=== PATIENT | male | born 1965 | race Caucasian/White ===

== ENCOUNTER 2019-07-29 20:46 | Inpatient (IN) | payer MEDICARE, MEDICAID ==
[~2019-07-29] VITALS: Ht 177.8 cm; Wt 124.7 kg
[~2019-07-29 20:46] MED LIST: DIVA125T2; OLAN2.5T3; SERT25TA; WARF1TAB46
[2019-07-29] MEDS ORDERED: PIPERACILLIN/TAZ 3.375G PREMIX 50 ML IV ONE (21:45)
[2019-07-29] MEDS ORDERED: VANCOMYCIN 1 G PREMIX 200 ML IV ONE (21:45)
[2019-07-29] MEDS ORDERED: ONDANSETRON HCL 4MG/2ML INJ IV STA (21:45)
[2019-07-29] MEDS ORDERED: MORPHINE SULFATE 4 MG/ML CPJ (NOT FOR IM USE) IV STA (21:45)
[2019-07-29] MEDS ORDERED: ONDANSETRON HCL 4MG/2ML INJ IV NR (22:15)
[2019-07-29 23:57] LABS: HEMATOCRIT. 38.9 % (42.0-52.0); HEMOGLOBIN. 13.2 g/dL (14.0-18.0); MEAN CORPUSCULAR HEMOGLOBIN 31.9 pg (28.0-32.0); MEAN CORPUSCULAR VOLUME 93.7 fL (80.0-94.0); MEAN PLATELET VOLUME 8.8 fl (7.4-10.4); PLATELET 205 x1000/uL (130-400); RED BLOOD CELL COUNT 4.15 mill/uL (4.7-6.1); RED CELL DISTRIBUTION WIDTH 13.7 % (11.6-14.6)
[2019-07-30 00:03] LABS: INR 2.3; PARTIAL THROMBOPLASTIN TIME 39.2 sec (23.4-31.0); PROTHROMBIN TIME 23.1 sec (9.6-11.0)
[2019-07-30 00:07] LABS: CHLORIDE 95 mEq/L (98-107)
[2019-07-30 00:11] LABS: ETHANOL BLOOD < 10 mg/dL
[2019-07-30 00:15] LABS: CREATINE KINASE 810 IU/L (39-308)
[2019-07-30 00:18] LABS: CREATINE KINASE MB FRACTION 5.9 ng/mL (0.5-3.6)
[2019-07-30 01:51] LABS: PLATELET ESTIMATE NORMAL
[2019-07-30 03:33] VITALS: BP 117/75
[2019-07-30 08:00] VITALS: BP 105/66
[2019-07-30] MEDS ORDERED: VANCOMYCIN 1500MG in DEXTROSE 5% WATER 250ML IV SCH (08:00)
[2019-07-30] MEDS: SERTRALINE HCL 25MG TABLET PO SCH (08:24)
[2019-07-30] MEDS: OLANZAPINE 2.5MG TABLET PO SCH (08:24)
[2019-07-30] MEDS: DIVALPROEX SODIUM 125MG EC TABLET PO SCH ×2 (09:27→22:12)
[2019-07-30 12:00] VITALS: BP 108/72
[2019-07-30 12:56] LABS: CLARITY URINE CLEAR (CLEAR); COLOR URINE YELLOW (YELLOW); KETONES URINE NEGATIVE (NEGATIVE); LEUKOCYTE ESTERASE URINE NEGATIVE (NEGATIVE); NITRITE URINE NEGATIVE (NEGATIVE); OCCULT BLOOD URINE TRACE (NEGATIVE); PH URINE 6.5 (4.5-8.0); PROTEIN URINE NEGATIVE (NEGATIVE); SPECIFIC GRAVITY URINE 1.012 (1.005-1.030)
[2019-07-30 13:07] LABS: *AMPHETAMINES SCREEN URINE NEGATIVE (NEGATIVE); *BENZODIAZEPINES SCREEN URINE NEGATIVE (NEGATIVE); *COCAINE SCREEN URINE NEGATIVE (NEGATIVE); METHADONE URINE SCREEN NEGATIVE (NEGATIVE)
[2019-07-30 13:08] LABS: CANNABINOID URINE SCREEN NEGATIVE (NEGATIVE); OPIATES URINE SCREEN PRESUMTIVE POSITIVE (NEGATIVE); PHENCYCLIDINE URINE SCREEN NEGATIVE (NEGATIVE)
[2019-07-30 13:10] LABS: *BARBITURATES SCREEN URINE NEGATIVE (NEGATIVE)
[2019-07-30 16:00] VITALS: BP 116/72
[2019-07-30] MEDS ORDERED: WARFARIN SODIUM 4MG TABLET PO SCH (18:00)
[2019-07-30 20:00] VITALS: BP 125/73
[2019-07-30] MEDS ORDERED: ACETAMINOPHEN 325MG TABLET PO PRN (20:30)
[2019-07-30] MEDS ORDERED: MAGNESIUM/ALUMINUM HYDROXIDE/SIMETHICONE 30ML UDC PO PRN (20:30)
[2019-07-30] MEDS ORDERED: GUAIFENESIN 200MG/10ML SUGAR FREE UDC PO PRN (20:30)
[2019-07-30] MEDS ORDERED: DIPHENHYDRAMINE 50MG/ML VIAL IV PRN (20:30)
[2019-07-30] MEDS ORDERED: IPRATROPIUM/ALBUTEROL 0.5-3(2.5)MG/3ML NEB HHN PRN (20:30)
[2019-07-30] MEDS ORDERED: CLONIDINE 0.1MG TABLET PO PRN (20:30)
[2019-07-30] MEDS ORDERED: ONDANSETRON HCL 4MG/2ML INJ IV PRN (20:30)
[2019-07-30] MEDS ORDERED: CEFAZOLIN SODIUM 1000MG/VIAL IV SCH (22:00)
[2019-07-30] MEDS: CEFAZOLIN 1000MG PREMIX 50 ML IV SCH (22:12)
[2019-07-30] MEDS: SODIUM CHLORIDE 0.9% INJ 3ML FLUSH IVF SCH (22:12)
[2019-07-31] VITALS: BP 128/78
[2019-07-31 04:00] VITALS: BP 126/71
[2019-07-31] MEDS: CEFAZOLIN 1000MG PREMIX 50 ML IV SCH ×3 (05:17→21:46)
[2019-07-31] MEDS: SODIUM CHLORIDE 0.9% INJ 3ML FLUSH IVF SCH ×3 (05:17→21:47)
[2019-07-31 06:16] LABS: INR 2.5; PROTHROMBIN TIME 24.4 sec (9.6-11.0)
[2019-07-31 06:58] LABS: CHLORIDE 96 mEq/L (98-107)
[2019-07-31 08:00] VITALS: BP 146/69
[2019-07-31] MEDS: SERTRALINE HCL 25MG TABLET PO SCH (09:16)
[2019-07-31] MEDS: DIVALPROEX SODIUM 125MG EC TABLET PO SCH ×2 (09:17→21:46)
[2019-07-31] MEDS: OLANZAPINE 2.5MG TABLET PO SCH (09:17)
[2019-07-31 12:00] VITALS: BP 140/82
[2019-07-31] MEDS ORDERED: FERR325T6 MT (14:07)
[2019-07-31] MEDS ORDERED: SERT-112 MT (14:07)
[2019-07-31] MEDS ORDERED: BUSP10TA3 MT (14:07)
[2019-07-31] MEDS ORDERED: OMEP20CA5 MT (14:07)
[2019-07-31] MEDS ORDERED: OLAN5TAB26 MT (14:07)
[2019-07-31] MEDS ORDERED: TRAZ150T78 MT (14:07)
[2019-07-31] MEDS ORDERED: WARF4TAB71 MT (14:07)
[2019-07-31] MEDS ORDERED: VALP250C3 PO (14:08)
[2019-07-31] MEDS ORDERED: VALP250C3 MT (14:08)
[2019-07-31] MEDS ORDERED: LOSA50TA41 MT (14:08)
[2019-07-31] MEDS ORDERED: WARFARIN SODIUM 4MG TABLET PO NR (18:00)
[2019-08-01] VITALS: BP 141/77
[2019-08-01 04:00] VITALS: BP 130/79
[2019-08-01] MEDS: SODIUM CHLORIDE 0.9% INJ 3ML FLUSH IVF SCH ×2 (06:30→14:00)
[2019-08-01] MEDS: CEFAZOLIN 1000MG PREMIX 50 ML IV SCH ×3 (06:30→22:00)
[2019-08-01] MEDS: OLANZAPINE 2.5MG TABLET PO SCH (09:06)
[2019-08-01] MEDS: DIVALPROEX SODIUM 125MG EC TABLET PO SCH ×2 (09:06→21:39)
[2019-08-01] MEDS: SERTRALINE HCL 25MG TABLET PO SCH (09:06)
[2019-08-01 12:14] LABS: HEMATOCRIT. 35.8 % (42.0-52.0); HEMOGLOBIN. 12.3 g/dL (14.0-18.0); MEAN CORPUSCULAR HEMOGLOBIN 32.2 pg (28.0-32.0); MEAN CORPUSCULAR VOLUME 94.1 fL (80.0-94.0); MEAN PLATELET VOLUME 9.4 fl (7.4-10.4); PLATELET 216 x1000/uL (130-400); RED CELL DISTRIBUTION WIDTH 13.6 % (11.6-14.6)
[2019-08-01 12:21] LABS: INR 1.7; PROTHROMBIN TIME 16.8 sec (9.6-11.0)
[2019-08-01 12:27] VITALS: BP 123/77
[2019-08-01 14:04] LABS: PLATELET ESTIMATE NORMAL
[2019-08-01 16:00] VITALS: BP 141/84
[2019-08-01] MEDS ORDERED: WARFARIN SODIUM 5MG TABLET PO NR (18:00)
[2019-08-01 20:00] VITALS: BP 133/70
[2019-08-02] VITALS: BP 125/67
[2019-08-02 04:00] VITALS: BP 127/72
[2019-08-02] MEDS: CEFAZOLIN 1000MG PREMIX 50 ML IV SCH (06:00)
[2019-08-02 07:52] LABS: INR 1.4
[2019-08-02 08:00] VITALS: BP 143/85
[2019-08-02] MEDS: DIVALPROEX SODIUM 125MG EC TABLET PO SCH ×2 (09:06→21:23)
[2019-08-02] MEDS: OLANZAPINE 2.5MG TABLET PO SCH (09:06)
[2019-08-02] MEDS: SERTRALINE HCL 25MG TABLET PO SCH (09:06)
[2019-08-02] MEDS ORDERED: ONDANSETRON HCL 4MG/2ML INJ IM SCH (09:15)
[2019-08-02 12:00] VITALS: BP 144/83
[2019-08-02] MEDS ORDERED: WARFARIN SODIUM 3MG TABLET PO SCH (18:00)
[2019-08-02 20:00] VITALS: BP 166/91
[2019-08-02] MEDS: HYDROCODONE/ACETAMINOPHEN 5/325MG TABLET PO PRN ×2 (20:35→21:41)
[2019-08-02] MEDS: SODIUM CHLORIDE 0.9% INJ 3ML FLUSH IVF SCH (21:41)
[2019-08-03] VITALS: BP 124/77
[2019-08-03 04:00] VITALS: BP 128/80
[2019-08-03] MEDS: HYDROCODONE/ACETAMINOPHEN 5/325MG TABLET PO PRN (05:20)
[2019-08-03] MEDS: SODIUM CHLORIDE 0.9% INJ 3ML FLUSH IVF SCH ×3 (05:23→21:33)
[2019-08-03 08:18] LABS: INR 1.3; PROTHROMBIN TIME 13.2 sec (9.6-11.0)
[2019-08-03] MEDS: OLANZAPINE 2.5MG TABLET PO SCH (08:37)
[2019-08-03] MEDS: SERTRALINE HCL 25MG TABLET PO SCH (08:37)
[2019-08-03] MEDS: DIVALPROEX SODIUM 125MG EC TABLET PO SCH ×2 (08:37→20:52)
[2019-08-03] MEDS: LORAZEPAM 1MG TABLET PO PRN (11:05)
[2019-08-03] MEDS: HYDROCODONE/APAP 7.5/325MG 1 TAB TABLET PO PRN (11:06)
[2019-08-03] MEDS: ONDANSETRON 4MG ODT PO PRN (13:52)
[2019-08-03] MEDS ORDERED: WARFARIN SODIUM 7.5MG TABLET PO SCH (18:00)
[2019-08-03 20:00] VITALS: BP 128/83
[2019-08-04] MEDS: SODIUM CHLORIDE 0.9% INJ 3ML FLUSH IVF SCH ×3 (05:17→20:41)
[2019-08-04 06:40] LABS: BASOPHILS % 0.3 % (0.0-2.0); EOSINOPHILS % 0.6 % (0.0-5.0); HEMOGLOBIN. 12.1 g/dL (14.0-18.0); LYMPHOCYTES % 16.8 % (20.0-50.0); MEAN CORPUSCULAR HEMOGLOBIN 32.5 pg (28.0-32.0); MEAN CORPUSCULAR VOLUME 93.9 fL (80.0-94.0); MEAN PLATELET VOLUME 8.9 fl (7.4-10.4); MONOCYTES % 12.3 % (2.0-8.0); PLATELET 247 x1000/uL (130-400); RED BLOOD CELL COUNT 3.73 mill/uL (4.7-6.1); RED CELL DISTRIBUTION WIDTH 13.8 % (11.6-14.6)
[2019-08-04 06:47] LABS: INR 1.7; PROTHROMBIN TIME 17.2 sec (9.6-11.0)
[2019-08-04 07:02] LABS: CHLORIDE 100 mEq/L (98-107)
[2019-08-04 08:00] VITALS: BP 139/84
[2019-08-04] MEDS: DIVALPROEX SODIUM 125MG EC TABLET PO SCH ×2 (08:00→20:40)
[2019-08-04] MEDS: SERTRALINE HCL 25MG TABLET PO SCH (08:00)
[2019-08-04] MEDS: OLANZAPINE 2.5MG TABLET PO SCH (08:00)
[2019-08-04] MEDS: ONDANSETRON 4MG ODT PO PRN ×2 (08:00→14:57)
[2019-08-04 12:00] VITALS: BP 120/79
[2019-08-04] MEDS: HYDROCODONE/APAP 7.5/325MG 1 TAB TABLET PO PRN (14:58)
[2019-08-04] MEDS ORDERED: WARFARIN SODIUM 3MG TABLET PO NR (18:00)
[2019-08-04] MEDS: LORAZEPAM 1MG TABLET PO PRN (18:11)
[2019-08-04 20:00] VITALS: BP 139/75
[2019-08-05] MEDS: LORAZEPAM 1MG TABLET PO PRN ×2 (03:37→16:17)
[2019-08-05 04:00] VITALS: BP 152/74
[2019-08-05] MEDS: SODIUM CHLORIDE 0.9% INJ 3ML FLUSH IVF SCH ×3 (06:00→21:49)
[2019-08-05 06:44] LABS: INR 2.1; PROTHROMBIN TIME 20.6 sec (9.6-11.0)
[2019-08-05] MEDS: OLANZAPINE 2.5MG TABLET PO SCH (08:51)
[2019-08-05] MEDS: SERTRALINE HCL 25MG TABLET PO SCH (08:52)
[2019-08-05] MEDS: DIVALPROEX SODIUM 125MG EC TABLET PO SCH ×2 (08:52→21:48)
[2019-08-05] MEDS: ONDANSETRON 4MG ODT PO PRN (10:22)
[2019-08-05 12:00] VITALS: BP 145/86
[2019-08-05] MEDS: LIDOCAINE 5% PATCH TOP SCH (15:01)
[2019-08-05 16:00] VITALS: BP 143/89
[2019-08-05] MEDS ORDERED: WARFARIN SODIUM 4MG TABLET PO SCH (18:00)
[2019-08-05 20:00] VITALS: BP 146/88
[2019-08-06] VITALS: BP 136/83
[2019-08-06] MEDS: SODIUM CHLORIDE 0.9% INJ 3ML FLUSH IVF SCH ×2 (05:19→14:00)
[2019-08-06] MEDS ORDERED: NA PHOS,M-B/NA PHOS,DI-BA ENEMA 118ML PR PRN (06:15)
[2019-08-06 07:02] LABS: INR 1.9; PROTHROMBIN TIME 19.2 sec (9.6-11.0)
[2019-08-06 08:00] VITALS: BP 146/86
[2019-08-06] MEDS: OLANZAPINE 2.5MG TABLET PO SCH (08:53)
[2019-08-06] MEDS: LIDOCAINE 5% PATCH TOP SCH (08:53)
[2019-08-06] MEDS: DIVALPROEX SODIUM 125MG EC TABLET PO SCH (08:53)
[2019-08-06] MEDS: SERTRALINE HCL 25MG TABLET PO SCH (08:53)
[2019-08-06] MEDS ORDERED: DOCUSATE SODIUM 100MG CAPSULE PO SCH (09:00)
[2019-08-06 12:00] VITALS: BP 138/87
[2019-08-06 14:07] VITALS: BP 134/87
[2019-08-06 16:00] VITALS: BP 138/85
[2019-08-06] MEDS ORDERED: WARFARIN SODIUM 5MG TABLET PO SCH (18:00)
== END 2019-08-06 17:13 | DRG 563 ==
LOC: ER 20:46 → 6EST 07-30 01:08 → EDBEDREQDT 07-30 01:12 → EDBEDREQ 07-30 01:12 → EDBEDREQTM 07-30 01:12 → EDBEDREQSVC 07-30 01:12 → ENRESERV 07-30 01:45
PROVIDERS: ADMIT Family Medicine Adult Medicine; ATTEND Family Medicine Adult Medicine
DX: S82.145A Nondisplaced bicondylar fracture of left tibia, initial encounter for closed fracture (principal); L03.116 Cellulitis of left lower limb; I82.403 Acute embolism and thrombosis of unspecified deep veins of lower extremity, bilateral; E22.2 Syndrome of inappropriate secretion of antidiuretic hormone; M62.82 Rhabdomyolysis; I82.512 Chronic embolism and thrombosis of left femoral vein; I51.7 Cardiomegaly; M85.80 Other specified disorders of bone density and structure, unspecified site; R79.1 Abnormal coagulation profile; W03.XXXA Other fall on same level due to collision with another person, initial encounter; E66.01 Morbid (severe) obesity due to excess calories; Z68.39 Body mass index [BMI] 39.0-39.9, adult; Z72.0 Tobacco use; Z79.01 Long term (current) use of anticoagulants; Y93.89 Activity, other specified; Y92.89 Other specified places as the place of occurrence of the external cause; Y99.8 Other external cause status
CPT/HCPCS: 36415; 71045; 73502; 73590; 73600; 73620; 73700; 80048; 80165; 80202; 80305; 80320; 81003; 82550; 82553; 83605; 83880; 84443; 84484; 93005; 93970; 97140; 97162; 97165; 97530; 97535; 99285; C1893; J0690; J1200; J2270; J2405; J2543; J3370; J7060; Q0162; G0480

== ENCOUNTER 2019-11-01 18:03 | Inpatient (IN) | payer MEDICARE, MEDICAID ==
[~2019-11-01] VITALS: Ht 188 cm; Wt 90.7 kg
[~2019-11-01 18:03] MED LIST changes: +BUSP10TA3 MT; -DIVA125T2; +FERR325T6 MT; +LOSA50TA41 MT; -OLAN2.5T3; +OLAN5TAB26 MT; +OMEP20CA14 MT; +SERT-112 MT; -SERT25TA; +TRAZ150T78 MT; +VALP250C3 MT; +VALP250C3 PO; -WARF1TAB46; +WARF4TAB71 MT
[2019-11-01] MEDS ORDERED: SODIUM CHLORIDE 0.9% 1,000 ML IV ONE (21:51)
[2019-11-01] MEDS ORDERED: MORPHINE SULFATE 4 MG/ML CPJ (NOT FOR IM USE) IV STA (21:51)
[2019-11-01] MEDS ORDERED: ONDANSETRON HCL 4MG/2ML INJ IV STA (21:51)
[2019-11-01] MEDS ORDERED: FAMOTIDINE 20MG/2ML VIAL IV ONE (22:00)
[2019-11-01] MEDS ORDERED: MAGNESIUM/ALUMINUM HYDROXIDE/SIMETHICONE 30ML UDC PO ONE (22:00)
[2019-11-01 23:51] LABS: BASOPHILS % 0.5 % (0.0-2.0); EOSINOPHILS % 1.3 % (0.0-5.0); HEMATOCRIT. 37.6 % (42.0-52.0); HEMOGLOBIN. 12.7 g/dL (14.0-18.0); LYMPHOCYTES % 16.9 % (20.0-50.0); MEAN CORPUSCULAR HEMOGLOBIN 30.2 pg (28.0-32.0); MEAN CORPUSCULAR VOLUME 89.2 fL (80.0-94.0); MEAN PLATELET VOLUME 8.5 fl (7.4-10.4); MONOCYTES % 5.9 % (2.0-8.0); NEUTROPHILS % 75.4 % (40.0-76.0); PLATELET 294 x1000/uL (130-400); RED BLOOD CELL COUNT 4.22 mill/uL (4.7-6.1); RED CELL DISTRIBUTION WIDTH 14.1 % (11.6-14.6)
[2019-11-01 23:56] LABS: CHLORIDE 104 mEq/L (98-107)
[2019-11-01 23:57] LABS: INR 1.1
[2019-11-02 00:03] LABS: ETHANOL BLOOD < 10 mg/dL
[2019-11-02] MEDS ORDERED: ASPIRIN 81MG TABLET PO ONE (01:45)
[2019-11-02] MEDS ORDERED: IOHEXOL-350 100 ML BOTTLE ONE (04:42)
[2019-11-02 05:38] VITALS: BP 146/89
[2019-11-02 12:20] VITALS: BP 120/71
[2019-11-02 16:00] VITALS: BP 117/62
[2019-11-02] MEDS ORDERED: LORAZEPAM 0.5MG TABLET PO PRN (18:15)
[2019-11-02] MEDS ORDERED: ONDANSETRON HCL 4MG/2ML INJ IV PRN (18:15)
[2019-11-02] MEDS ORDERED: ACETAMINOPHEN 325MG TABLET PO PRN (18:15)
[2019-11-02] MEDS ORDERED: HYDROCODONE/ACETAMINOPHEN 5/325MG TABLET PO PRN (18:15)
[2019-11-02] MEDS ORDERED: CLONIDINE 0.1MG TABLET PO PRN (18:15)
[2019-11-02] MEDS ORDERED: IPRATROPIUM/ALBUTEROL 0.5-3(2.5)MG/3ML NEB HHN PRN (18:15)
[2019-11-02] MEDS ORDERED: DOCUSATE SODIUM 100MG CAPSULE PO PRN (18:15)
[2019-11-02 20:00] VITALS: BP 112/67
[2019-11-02] MEDS: VALPROIC ACID 250MG CAPSULE PO SCH (22:00)
[2019-11-02] MEDS: SERTRALINE HCL 100MG TABLET PO SCH (22:00)
[2019-11-02] MEDS: BUSPIRONE HCL 5MG TABLET PO SCH (22:00)
[2019-11-02] MEDS: FUROSEMIDE 40MG/4ML VIAL IV SCH (22:01)
[2019-11-02] MEDS: OLANZAPINE 5MG TABLET PO SCH (22:01)
[2019-11-02 23:55] VITALS: BP 105/62
[2019-11-03 04:00] VITALS: BP 122/67
[2019-11-03] MEDS: BUSPIRONE HCL 5MG TABLET PO SCH ×3 (06:00→21:21)
[2019-11-03 08:00] VITALS: BP 126/88
[2019-11-03] MEDS: LOSARTAN POTASSIUM 50 MG TABLET PO SCH (09:10)
[2019-11-03] MEDS: FUROSEMIDE 40MG/4ML VIAL IV SCH (09:10)
[2019-11-03] MEDS: SERTRALINE HCL 100MG TABLET PO SCH (09:11)
[2019-11-03] MEDS: VALPROIC ACID 250MG CAPSULE PO SCH ×2 (09:11→16:54)
[2019-11-03 12:00] VITALS: BP 121/81
[2019-11-03 16:00] VITALS: BP 130/86
[2019-11-03] MEDS ORDERED: WARFARIN SODIUM 7.5MG TABLET PO SCH (18:00)
[2019-11-03 20:00] VITALS: BP 120/75
[2019-11-03] MEDS: OLANZAPINE 5MG TABLET PO SCH (21:21)
[2019-11-04] VITALS: BP 125/76
[2019-11-04 04:00] VITALS: BP 108/70
[2019-11-04] MEDS: BUSPIRONE HCL 5MG TABLET PO SCH ×3 (06:01→21:20)
[2019-11-04 07:17] LABS: PROTHROMBIN TIME 10.6 sec (9.6-11.0)
[2019-11-04 08:00] VITALS: BP 132/92
[2019-11-04] MEDS: VALPROIC ACID 250MG CAPSULE PO SCH ×2 (08:46→16:35)
[2019-11-04] MEDS: FUROSEMIDE 40MG/4ML VIAL IV SCH (08:46)
[2019-11-04] MEDS: SERTRALINE HCL 100MG TABLET PO SCH (08:46)
[2019-11-04] MEDS: LOSARTAN POTASSIUM 50 MG TABLET PO SCH (08:46)
[2019-11-04 12:00] VITALS: BP 123/89
[2019-11-04 16:00] VITALS: BP 117/63
[2019-11-04] MEDS ORDERED: WARFARIN SODIUM 7.5MG TABLET PO SCH (18:00)
[2019-11-04 20:17] VITALS: BP 116/62
[2019-11-04] MEDS: OLANZAPINE 5MG TABLET PO SCH (21:25)
[2019-11-05 00:21] VITALS: BP 119/63
[2019-11-05 04:00] VITALS: BP 112/70
[2019-11-05] MEDS: BUSPIRONE HCL 5MG TABLET PO SCH ×2 (06:02→14:03)
[2019-11-05 06:10] LABS: INR 1.2; PROTHROMBIN TIME 12.2 sec (9.6-11.0)
[2019-11-05 08:02] VITALS: BP 126/77
[2019-11-05] MEDS: FUROSEMIDE 40MG/4ML VIAL IV SCH (09:00)
[2019-11-05] MEDS: SERTRALINE HCL 100MG TABLET PO SCH (09:00)
[2019-11-05] MEDS: LOSARTAN POTASSIUM 50 MG TABLET PO SCH (09:00)
[2019-11-05] MEDS ORDERED: OMEPRAZOLE 20MG CAPSULE EXTENDED RELEASE PO SCH (09:00)
[2019-11-05] MEDS: VALPROIC ACID 250MG CAPSULE PO SCH (09:00)
[2019-11-05] MEDS ORDERED: ATOR20TA65 MT (09:33)
[2019-11-05 11:56] VITALS: BP 136/89
[2019-11-05] MEDS ORDERED: WARFARIN SODIUM 7.5MG TABLET PO NR (18:00)
== END 2019-11-05 14:38 | DRG 313 ==
LOC: ER 18:03 → 6WST 11-02 01:22 → EDBEDREQDT 11-02 01:28 → EDBEDREQTM 11-02 01:28 → EDBEDREQ 11-02 01:28 → ENRESERV 11-02 03:06
PROVIDERS: ADMIT Internal Medicine; ATTEND Internal Medicine
DX: R07.89 Other chest pain (principal); I82.509 Chronic embolism and thrombosis of unspecified deep veins of unspecified lower extremity; G91.9 Hydrocephalus, unspecified; E78.5 Hyperlipidemia, unspecified; F20.9 Schizophrenia, unspecified; G40.909 Epilepsy, unspecified, not intractable, without status epilepticus; I87.8 Other specified disorders of veins; K44.9 Diaphragmatic hernia without obstruction or gangrene; D64.9 Anemia, unspecified; I10 Essential (primary) hypertension; F41.9 Anxiety disorder, unspecified; F32.9 Major depressive disorder, single episode, unspecified; Z79.01 Long term (current) use of anticoagulants; Z95.828 Presence of other vascular implants and grafts; Z79.899 Other long term (current) drug therapy
CPT/HCPCS: 36415; 71045; 71275; 80053; 80061; 80320; 82728; 83036; 83540; 83550; 83880; 84484; 85025; 93005; 93306; 93970; 96374; 97162; 99285; J1940; J2270; J2405; J3490; J7030; Q9967; G0480